=== PATIENT | female | born 1970 | race Caucasian/White ===

== ENCOUNTER 2016-10-20 13:09 | Emergency (ER) | payer OTHER ==
--- NOTE | ~2016-10-20 | CT4 ---
[facility] A Service of [facility] [place] & [facility] RADIOLOGY TEXT RESULTS PATIENT: DIONNE SAMANIEGO LOCATION: [facility] : 70 UNIT #: [id number] AGE: [address]: Jose Mike MD SEX: F ORDER DR: [id number] [facility] [address] [place], [place] [address] [id number] E MR#: [id number] Acc #: [id number] NAME: DIONNE SAMANIEGO. : 1970 SEX: F STUDY DATE/TIME: 10/20/2016 13:44 UNIT: [facility] ROOM: STUDY DESCRIPTION: CT Abd and Pelv Wo Cont Attending Physician: Jose Mike M.D. Ordering Physician: Jose Mike M.D. Primary Care Physician: Vince TiwariPLeopoldoRShaan MEDICAL IMAGING REPORT This report is preliminary unless electronic signature is present EXAM CT abdomen and pelvis without contrast. DATE OF EXAM 10/20/2016, 1344 hours. CLINICAL HISTORY 45-year-old woman with history of kidney stones, diverticulitis complaining of left flank pain since last night. COMPARISON CT abdomen and pelvis, 06/07/2012. TECHNIQUE Helical noncontrasted images were obtained from the lung bases through the pubic symphysis without oral or intravenous contrast. Sagittal and coronal reconstructions were performed. Total exam DLP 1070 mGy-cm. NOTE: This CT exam was performed with one or more of the following radiation dose reduction techniques: automatic exposure control, adjustment of mA and/or kV according to patient size, and iterative reconstruction. FINDINGS Images through the lung bases demonstrate minimal dependent ground-glass density most consistent with atelectasis. There is no effusion. The distal esophagus is normal. Noncontrasted images through the abdomen demonstrate a normal appearance to the liver, spleen, pancreas, gallbladder and bile ducts. The right kidney demonstrates a punctate stone in the anterior mid kidney nonobstructing. There is no dilatation of the right renal collecting system or ureter. No ureteral calculus. The [facility] [place] & [facility] RADIOLOGY TEXT RESULTS PATIENT: DIONNE SAMANIEGO [id number] [birth year] UNIT #: [id number] AGE: [address]: Jose Mike MD SEX: F ORDER DR: definite intrarenal stone. There is mild prominence of the left renal pelvis, decreased from 06/07/2012. The left ureter is mildly prominent relative to the right, but no ureteral calculus is seen. The diameter of the ureter is decreased from prior study and current findings could be related to previous episodes of obstruction. There is no bladder stone seen. The stomach and small bowel are normal. The terminal ileum, cecum and appendix are normal. There is no colonic wall thickening. CT pelvis demonstrates the cysts on the right ovary decreased in size from the prior study. I cannot clearly discriminate the left ovary and question whether the patient has had a left oophorectomy. There is no pelvic free fluid. IMPRESSION 1. There is a punctate nonobstructing stone in the anterior mid-right kidney. No intrarenal stones are seen on the left. There is very mild left pelviectasis and ureterectasis without a ureteral stone seen. The diameter of the pelvis and ureter is decreased from 05/2012 when the patient had a distal left ureteral stone and the current findings could be related to recent passage of a stone or some mild chronic dilatation from previous episodes of obstruction. 2. Normal appearance to the small bowel, colon and appendix. 3. Small cyst within the right ovary. I cannot discriminate the left ovary where the patient had multiple cystic lesions previously and question whether the patient has had a left-sided oophorectomy. 4. Minimal dependent atelectasis at the lung bases. Dictated by... Kathleen Bhatt M.D. THIS IS AN ELECTRONICALLY VERIFIED REPORT Kathleen Bhatt M.D. at 10/23/2016 9:17 AM JOSE/nicki TD: 10/20/2016 18:22 JOB #: [id number] MEDICAL IMAGING REPORT COPY
[2016-10-20 12:53] LABS: BASOPHIL% 0.5 % (0-2.5); EOSINOPHIL# 0.1 X10e3 (0-0.7); HEMATOCRIT 39.9 % (35.0-45.0); HEMOGLOBIN 13.1 gm/dL (12.0-16.0); LYMPHOCYTE# 1.3 X10e3 (1.0-3.5); LYMPHOCYTE% 16.5 % (17.0-45.0); MEAN CELL VOLUME 93.6 FL (83-96); MEAN CORPUSCULAR HEMOGLOBIN 30.7 PG (28-34); MEAN CORPUSCULAR HGB CONC 32.8 g/dL (30-36); MEAN PLATELET VOLUME 9.5 FL (6.5-11.5); MONOCYTE# 0.4 X10e3 (0-1.0); MONOCYTE% 4.6 % (3.0-12.0); NEUTROPHIL# 6.3 X10e3 (1.5-7.1); NEUTROPHIL% 77.4 % (40-75); PLATELET COUNT 192 X10e3 (140-420); RED BLOOD COUNT 4.26 X10e (3.90-5.30); RED CELL DISTRIBUTION WIDTH 14.4 % (11.0-15.5); WHITE BLOOD COUNT 8.2 X10e3 (4.0-10.5)
[2016-10-20 12:58] LABS: DIFF IND NO
[2016-10-20 13:06] LABS: URINE SOURCE CLEAN CATCH
[~2016-10-20 13:09] MED LIST: ALBUTEROL MININEB NEB; ALBUTEROL17 GM INH; ALPRAZOLAM1 MG PO; AMOXICILLIN PO; ASPIRIN325 M1 PO; ASPIRIN81 M1 PO; ASPIRIN81 M2 PO; BENTYL10 MG DOB; BENTYL10 MG PO; CIPRO PO; DESYREL100 MG PO; EFFEXOR-XR37.5 MG PO; GABAPENTIN600 MG PO; HYDROCODON-ACE1 EAC1 PO; HYDROCODONE-APA1 T55 PO; KEFLEX PO; KEFLEX500 MG; LORTAB 7.5-3251 EACH PO; LORTAB 7.5-5001 TAB PO; MULTI-DAY VITAM1 TAB PO; OMEPRAZOLE40 M1 PO; OMEPRAZOLE40 MG PO; ORUDIS75 M1 PO; PERCOCET 5-3251 TAB; PERCOCET 51 UDTAB 5/ PO; PERCOCET5/325 PO; PHENERGAN25 MG PO; PRILOSEC20 MG PO; PROTONIX PO; PROVENTIL INH0.5 ML NEB; PYRIDIUM PO; QVAR7.3 G1 INH; ROBITUSSIN ALL118 ML PO; SENNA8.6 M1 PO; SIMVASTATIN40 MG PO; SYMBICORT 80/46.9 G1 INH; ULTRAM PO; VICODIN 5/1 TAB 5/50 PO; VITAMIN D400 UNI2 PO; WELLBUTRIN SR150 MG PO; XANAX0.5 MG PO; YASMIN 28 TABLE1 TAB PO; ZOCOR20 MG PO; ZOFRANODT PO; ZOLOFT50 MG PO; ZYRTEC10 M1 PO; [UNRECOGNIZED DRUG - REMARK]
[2016-10-20 13:10] LABS: URINE APPEARANCE CLEAR; URINE BILIRUBIN NEG (NEG); URINE BLOOD 2+ (NEG); URINE COLOR YELLOW; URINE GLUCOSE NEG (NEG); URINE KETONE NEG (NEG); URINE LEUKOCYTE ESTERASE 1+ (NEG); URINE NITRATE NEG (NEG); URINE PH 7.5 (5-8); URINE PROTEIN NEG (NEG); URINE SPECIFIC GRAVITY 1.017 (1.003-1.035)
[2016-10-20 13:13] LABS: CULTURE INDICATED? YES; URBCS1 AUWI 25-50 /[HPF] (0-2); URINE BACTERIA AUWI NEG (NEGATIVE); URINE SQUAMOUS EPITHELIAL CELL OCC /[HPF]
[2016-10-20 13:25] LABS: ALBUMIN SERUM 4.3 g/dL (3.5-5.0); ALKALINE PHOSPHATASE 79 U/L (32-92); ALT (SGPT) 17 U/L (10-40); AST (SGOT) 22 U/L (10-42); BILIRUBIN, DIRECT 0.1 mg/dL (0.0-0.2); BILIRUBIN,INDIRECT 0.5 mg/dL (0.0-0.9); BILIRUBIN,TOTAL 0.6 mg/dL (0.2-2.0); BLOOD UREA NITROGEN 7 mg/dL (9-23); BUN/CREATININE RATIO 11.66; CALCIUM SERUM 8.8 mg/dL (8.4-10.2); CARBON DIOXIDE 25 mmol/L (22-31); CHLORIDE 101 mmol/L (100-111); CREATININE SERUM 0.6 mg/dL (0.6-1.4); GLOM FILT RATE Estimated ABOVE60 mL/min (>60); GLUCOSE FASTING 119 mg/dL (70-110); LIPASE 10 U/L (22-51); POTASSIUM 3.9 mmol/L (3.5-5.1); PROTEIN TOTAL SERUM 7.1 g/dL (6.0-8.3); SODIUM 137 mmol/L (135-145)
== END 2016-10-20 14:40 | disposition home or self-care (01) ==
LOC: CED 13:09
PROVIDERS: Emergency Medicine
DX: R10.9 Unspecified abdominal pain (principal); R11.2 Nausea with vomiting, unspecified; E78.5 Hyperlipidemia, unspecified; J44.9 Chronic obstructive pulmonary disease, unspecified; F17.200 Nicotine dependence, unspecified, uncomplicated
CPT/HCPCS: 36415; 74176; 80048; 80076; 81003; 83690; 85025; 87086; 96374; 96375; 99284; J1885; J2270; J2405

== ENCOUNTER 2017-01-13 18:35 | Emergency (ER) | payer OTHER ==
--- NOTE | ~2017-01-13 | EKG ---
PATIENT: DIONNE SAMANIEGO UNIT #: [id number] Ventricular Rate: 71 BPM Atrial Rate: 71 BPM P-R Interval: 164 ms QRS Duration: 78 ms Q-T Interval: 410 ms QTC Calculation(Bezet): 445 ms P [place]: 56 degrees Calculated R [place]: 89 degrees Calculated T [place]: 15 degrees Diagnosis Line: Normal sinus rhythm Diagnosis Line: Nonspecific T wave abnormality Diagnosis Line: Abnormal ECG Diagnosis Line: Diagnosis Line: Confirmed by DARRIN FERGUSON MD ([id number]) on Diagnosis Line: 01/14/2017 10:05:41 PM INTERPRETING MD: MARIAELENA
[2017-01-13 19:38] LABS: POC - CKMB 2.3 ng/mL (0.0-7.9); POC - TROPONIN <0.05 ng/mL (<=0.05)
[2017-01-13 19:41] LABS: BASOPHIL% 0.4 % (0-2.5); EOSINOPHIL# 0.1 X10e3 (0-0.7); EOSINOPHIL% 1.2 % (0.0-7.0); HEMATOCRIT 38.2 % (35.0-45.0); HEMOGLOBIN 12.6 gm/dL (12.0-16.0); LYMPHOCYTE# 1.1 X10e3 (1.0-3.5); LYMPHOCYTE% 17.8 % (17.0-45.0); MEAN CELL VOLUME 93.5 FL (83-96); MEAN CORPUSCULAR HEMOGLOBIN 30.9 PG (28-34); MEAN CORPUSCULAR HGB CONC 33.1 g/dL (30-36); MEAN PLATELET VOLUME 9.7 FL (6.5-11.5); MONOCYTE# 0.3 X10e3 (0-1.0); MONOCYTE% 4.9 % (3.0-12.0); NEUTROPHIL# 4.8 X10e3 (1.5-7.1); NEUTROPHIL% 75.7 % (40-75); PLATELET COUNT 172 X10e3 (140-420); RED BLOOD COUNT 4.09 X10e (3.90-5.30); RED CELL DISTRIBUTION WIDTH 14.5 % (11.0-15.5); WHITE BLOOD COUNT 6.4 X10e3 (4.0-10.5)
[2017-01-13 19:42] LABS: DIFF IND NO
[2017-01-13 19:46] LABS: INR 0.9; PROTHROMBIN TIME (PATIENT) 9.5 SECONDS (9.6-11.5)
[2017-01-13 19:52] LABS: URINE SOURCE CLEAN CATCH
[2017-01-13 19:55] LABS: ALBUMIN SERUM 4.2 g/dL (3.5-5.0); BILIRUBIN, DIRECT 0.1 mg/dL (0.0-0.2); BILIRUBIN,INDIRECT 0.7 mg/dL (0.0-0.9); BILIRUBIN,TOTAL 0.8 mg/dL (0.2-2.0); BUN/CREATININE RATIO 8.75; CALCIUM SERUM 8.8 mg/dL (8.4-10.2); CREATININE SERUM 0.8 mg/dL (0.6-1.4); GLOM FILT RATE Estimated 88.5 mL/min (>60); POTASSIUM 3.8 mmol/L (3.5-5.1); PROTEIN TOTAL SERUM 6.9 g/dL (6.0-8.3)
[2017-01-13 20:02] LABS: URINE APPEARANCE CLEAR; URINE BILIRUBIN NEG (NEG); URINE BLOOD TRACE (NEG); URINE COLOR YELLOW; URINE GLUCOSE NEG (NEG); URINE KETONE NEG (NEG); URINE LEUKOCYTE ESTERASE 1+ (NEG); URINE NITRATE NEG (NEG); URINE PROTEIN NEG (NEG)
[2017-01-13 20:04] LABS: CULTURE INDICATED? YES; URINE BACTERIA AUWI NEG (NEGATIVE); URINE SQUAMOUS EPITHELIAL CELL OCC /[HPF]
== END 2017-01-13 21:45 | disposition home or self-care (01) ==
LOC: CED 18:35
PROVIDERS: Emergency Medicine
DX: R53.1 Weakness (principal); R53.83 Other fatigue; I10 Essential (primary) hypertension; Z79.899 Other long term (current) drug therapy; Z86.79 Personal history of other diseases of the circulatory system
CPT/HCPCS: 36415; 80048; 80076; 81003; 82553; 82947; 84484; 84703; 85025; 85610; 87086; 93005; 99283

== ENCOUNTER 2017-02-06 15:00 | Emergency (ER) | payer OTHER ==
--- NOTE | ~2017-02-06 | EKG ---
PATIENT: DIONNE SAMANIEGO UNIT #: [id number] Ventricular Rate: 59 BPM Atrial Rate: 59 BPM P-R Interval: 160 ms QRS Duration: 80 ms Q-T Interval: 448 ms QTC Calculation(Bezet): 443 ms P [place]: 65 degrees Calculated R [place]: 63 degrees Calculated T [place]: 36 degrees Diagnosis Line: Sinus bradycardia Diagnosis Line: Nonspecific T wave abnormality Diagnosis Line: Abnormal ECG Diagnosis Line: When compared with ECG of 13-JAN-2017 19:14, Diagnosis Line: No significant change was found Diagnosis Line: Confirmed by DARRIN FERGUSON MD ([id number]) on Diagnosis Line: 02/07/2017 11:02:04 AM INTERPRETING : MARIAELENA
[2017-02-06 17:51] LABS: BASOPHIL% 0.5 % (0-2.5); EOSINOPHIL# 0.1 X10e3 (0-0.7); EOSINOPHIL% 1.8 % (0.0-7.0); HEMOGLOBIN 12.8 gm/dL (12.0-16.0); LYMPHOCYTE# 1.5 X10e3 (1.0-3.5); LYMPHOCYTE% 24.2 % (17.0-45.0); MEAN CELL VOLUME 93.1 FL (83-96); MEAN CORPUSCULAR HEMOGLOBIN 31.3 PG (28-34); MEAN CORPUSCULAR HGB CONC 33.6 g/dL (30-36); MEAN PLATELET VOLUME 8.6 FL (6.5-11.5); MONOCYTE# 0.3 X10e3 (0-1.0); MONOCYTE% 4.9 % (3.0-12.0); NEUTROPHIL# 4.3 X10e3 (1.5-7.1); NEUTROPHIL% 68.6 % (40-75); PLATELET COUNT 190 X10e3 (140-420); RED BLOOD COUNT 4.08 X10e (3.90-5.30); RED CELL DISTRIBUTION WIDTH 16.2 % (11.0-15.5); WHITE BLOOD COUNT 6.2 X10e3 (4.0-10.5)
[2017-02-06 17:55] LABS: DIFF IND NO
[2017-02-06 18:23] LABS: CALCIUM SERUM 8.8 mg/dL (8.4-10.2); CREATININE SERUM 0.7 mg/dL (0.6-1.4); GLOM FILT RATE Estimated 103.9 mL/min (>60); POTASSIUM 3.6 mmol/L (3.5-5.1)
[2017-02-06 18:27] LABS: POC - CKMB <1.0 ng/mL (0.0-7.9); POC - TROPONIN <0.05 ng/mL (<=0.05)
== END 2017-02-06 19:05 | disposition home or self-care (01) ==
LOC: CED 15:00
PROVIDERS: Emergency Medicine
DX: F41.0 Panic disorder [episodic paroxysmal anxiety] (principal); F41.1 Generalized anxiety disorder; J45.909 Unspecified asthma, uncomplicated; J44.9 Chronic obstructive pulmonary disease, unspecified; K58.9 Irritable bowel syndrome, unspecified; F17.210 Nicotine dependence, cigarettes, uncomplicated; Z87.442 Personal history of urinary calculi; Z98.890 Other specified postprocedural states; Z79.899 Other long term (current) drug therapy; Z79.82 Long term (current) use of aspirin
CPT/HCPCS: 36415; 80048; 82553; 84484; 85025; 93005; 99284